=== PATIENT | female | born 1980 | race Caucasian/White ===

== ENCOUNTER → 2023-06-21 | Outpatient (CLI) | payer MEDICAID ==
[2023-06-21 12:38] LABS: BASO # 0.1 10*3/uL (0.0-0.1); BASO % 0.8 % (0.0-1.0); BILIRUBIN Negative (Negative); BLOOD Negative (Negative); CLARITY Clear (Clear); COLOR Yellow (Yellow); EOS # 0.7 10*3/uL (0.0-0.4); EOS % 7.2 % (1.0-4.0); GLUCOSE 3+ (Negative); HEMATOCRIT 44.3 % (37.0-47.0); KETONE Negative (Negative); LEUKO ESTERASE Negative (Negative); LYMPH # 2.4 10*3/uL (1.3-4.4); LYMPH % 24.6 % (27.0-41.0); MEAN CELL VOLUME 92.5 fl (81.0-99.0); MEAN CORPUSCULAR HGB 32.4 pg (27.0-31.0); MEAN PLATELET VOLUME 9.4 fl (9.6-12.3); MONO # 0.8 10*3/uL (0.1-1.0); MONO % 8.5 % (3.0-9.0); NEUT # 5.7 10*3/uL (2.3-7.9); NEUT % 58.6 % (47.0-73.0); NITRITE Negative (Negative); PLATELET COUNT AUTOMATED 264 10*3/uL (130-400); RED BLOOD COUNT 4.79 10*6/uL (4.10-5.10); RED CELL DISTRI WIDTH 12.6 % (0-14.5); RETICULOCYTE % 1.57 % (0.50-2.50); SPECIFIC GRAVITY 1.015 (1.001-1.030); UROBILINOGEN 0.2 E.U./dl (0.0-1.0); WHITE BLOOD COUNT 9.6 10*3/uL (4.8-10.8)
[2023-06-21 13:06] LABS: BACTERIA 2+; YEAST TRACE
[2023-06-21 13:11] LABS: ALKALINE PHOSPHATASE 56 U/L (46-116); BUN 9 mg/dl (9-23); CHLORIDE 107 mmol/L (98-107); CHOLESTEROL 161 mg/dL (<200); GAMMA GLUTAMYL TRANSPEPTIDASE 24 U/L (0-73); LDL CHOLESTEROL 80 mg/dL (9-159); POTASSIUM 3.8 mmol/L (3.4-5.1); SGPT/ALT 28 U/L (10-49); T3 UPTAKE 18.5 % (22.4-36.7); THYROXINE (T4) TOTAL 8.7 ug/dl (4.5-10.9); TOTAL PROTEIN 7.2 gm/dL (6.0-8.0); TRIGLYCERIDES 177 mg/dl (<150); URIC ACID 4.4 mg/dL (3.1-7.8)
[2023-06-21 13:12] LABS: VITAMIN D, 25-HYDROXY 21.2 ng/mL (30-100)
[2023-06-21 13:32] LABS: ATYPICAL LYMPHS 1 % (0-0); BASOPHILS 1 % (0-1); TOTAL CELLS COUNTED 100 #CELLS
[2023-06-21 13:33] LABS: OVALOCYTES FEW; PLATELET SUFFICIENCY NORMAL (NORMAL); POLYCHROMASIA SLIGHT
[2023-06-22 03:06] LABS: TOTAL PROTEIN, SERUM 6.9 g/dL (6.0-8.5)
[2023-06-22 13:07] LABS: A/G RATIO 1.3 (0.7-1.7); ALBUMIN 3.9 g/dL (2.9-4.4); ALPHA-1-GLOBULIN 0.2 g/dL (0.0-0.4); ALPHA-2-GLOBULIN 0.9 g/dL (0.4-1.0); ANTI-DSDNA ANTIBODIES <1 IU/mL (0-9); BETA GLOBULIN 1.1 g/dL (0.7-1.3); GAMMA GLOBULIN 0.9 g/dL (0.4-1.8); M-SPIKE Not Observed g/dL (Not Observed)
== END | disposition home or self-care (01) ==
LOC: LAB 12:11
PROVIDERS: ATTEND Family Medicine
DX: M47.812 Spondylosis without myelopathy or radiculopathy, cervical region (principal); M50.322 Other cervical disc degeneration at C5-C6 level; M50.321 Other cervical disc degeneration at C4-C5 level; E78.5 Hyperlipidemia, unspecified; E55.9 Vitamin D deficiency, unspecified; R79.89 Other specified abnormal findings of blood chemistry; R53.83 Other fatigue; R74.8 Abnormal levels of other serum enzymes; Z95.810 Presence of automatic (implantable) cardiac defibrillator

== ENCOUNTER → 2023-07-13 | Outpatient (CLI) | payer MEDICAID | END | disposition home or self-care (01) | LOC: US 02:07 | PROVIDERS: ATTEND Family Medicine | DX: E04.1 Nontoxic single thyroid nodule (principal) ==

== ENCOUNTER → 2023-08-17 | Outpatient (CLI) | payer MEDICAID ==
[2023-08-17 16:15] LABS: BASO # 0.1 10*3/uL (0.0-0.1); BASO % 0.9 % (0.0-1.0); EOS # 0.7 10*3/uL (0.0-0.4); HEMATOCRIT 46.8 % (37.0-47.0); LYMPH # 2.1 10*3/uL (1.3-4.4); LYMPH % 22.1 % (27.0-41.0); MEAN CELL VOLUME 93.6 fl (81.0-99.0); MEAN CORPUSCULAR HGB 32.2 pg (27.0-31.0); MEAN CORPUSCULAR HGB CONC 34.4 g/dl (33.0-37.0); MEAN PLATELET VOLUME 9.3 fl (9.6-12.3); MONO # 0.8 10*3/uL (0.1-1.0); MONO % 8.2 % (3.0-9.0); NEUT # 5.9 10*3/uL (2.3-7.9); NEUT % 61.6 % (47.0-73.0); PLATELET COUNT AUTOMATED 256 10*3/uL (130-400); RETICULOCYTE % 1.65 % (0.50-2.50); WHITE BLOOD COUNT 9.6 10*3/uL (4.8-10.8)
[2023-08-17 16:16] LABS: BILIRUBIN Negative (Negative); BLOOD 3+ (Negative); CLARITY Cloudy (Clear); COLOR Red (Yellow); GLUCOSE 3+ (Negative); KETONE Negative (Negative); LEUKO ESTERASE Trace (Negative); NITRITE Negative (Negative); SPECIFIC GRAVITY 1.015 (1.001-1.030); UROBILINOGEN 0.2 E.U./dl (0.0-1.0)
[2023-08-17 16:38] LABS: RBC TNTC rbc/hpf (0-2)
[2023-08-17 16:42] LABS: ALKALINE PHOSPHATASE 64 U/L (46-116); BUN 10 mg/dl (9-23); CHLORIDE 105 mmol/L (98-107); CHOLESTEROL 201 mg/dL (<200); GAMMA GLUTAMYL TRANSPEPTIDASE 24 U/L (0-73); LDL CHOLESTEROL 80 mg/dL (9-159); POTASSIUM 3.7 mmol/L (3.4-5.1); SGPT/ALT 37 U/L (5-49); T3 UPTAKE 21.9 % (22.4-36.7); THYROXINE (T4) TOTAL 10.4 ug/dl (4.5-10.9); TOTAL PROTEIN 7.6 gm/dL (6.0-8.0); TRIGLYCERIDES 393 mg/dl (<150)
[2023-08-17 16:45] LABS: VITAMIN D, 25-HYDROXY 31.7 ng/mL (30-100)
[2023-08-17 16:55] LABS: B-hCG (QUALITATIVE) NEGATIVE (NEGATIVE); BETA-HCG, QUANT < 3.0 mIU/mL (3-10)
[2023-08-18 08:09] LABS: DHEA SULFATE 49.9 ug/dL (41.2-243.7)
[2023-08-18 12:07] LABS: SEX HORMONE BINDING GLOBULIN 51.3 nmol/L (24.6-122.0)
[2023-08-23 00:06] LABS: TESTOSTERONE FREE, (DIRECT) 0.8 pg/mL (0.0-4.2)
== END | disposition home or self-care (01) ==
LOC: LAB 15:43
PROVIDERS: ATTEND Family Medicine
DX: E78.5 Hyperlipidemia, unspecified (principal); E55.9 Vitamin D deficiency, unspecified; R79.89 Other specified abnormal findings of blood chemistry; R53.83 Other fatigue; R74.8 Abnormal levels of other serum enzymes

== ENCOUNTER → 2023-09-06 | Outpatient (CLI) | payer MEDICAID ==
[2023-09-06 12:11] LABS: ALKALINE PHOSPHATASE 60 U/L (46-116); BUN 9 mg/dl (9-23); CHLORIDE 102 mmol/L (98-107); POTASSIUM 4.1 mmol/L (3.4-5.1); SGPT/ALT 21 U/L (5-49); TOTAL PROTEIN 7.4 gm/dL (6.0-8.0)
== END | disposition home or self-care (01) ==
LOC: LAB 11:20
PROVIDERS: ATTEND Family Medicine
DX: R79.89 Other specified abnormal findings of blood chemistry (principal); R53.83 Other fatigue

== ENCOUNTER → 2023-09-13 | Outpatient (CLI) | payer MEDICAID | END | disposition home or self-care (01) | LOC: US 02:39 | PROVIDERS: ATTEND Family Medicine | DX: K76.0 Fatty (change of) liver, not elsewhere classified (principal); K80.20 Calculus of gallbladder without cholecystitis without obstruction ==

== ENCOUNTER → 2023-11-28 | Outpatient (CLI) | payer MEDICAID ==
[2023-11-28 11:57] LABS: POTASSIUM 3.7 mmol/L (3.4-5.1); T3 UPTAKE 24.8 % (22.4-36.7); THYROXINE (T4) TOTAL 9.8 ug/dl (4.5-10.9); TOTAL PROTEIN 7.7 gm/dL (6.0-8.0)
== END | disposition home or self-care (01) ==
LOC: LAB 10:03
PROVIDERS: ATTEND Family Medicine
DX: E78.5 Hyperlipidemia, unspecified (principal); E55.9 Vitamin D deficiency, unspecified; R79.89 Other specified abnormal findings of blood chemistry; R53.83 Other fatigue; R74.8 Abnormal levels of other serum enzymes

== ENCOUNTER 2023-12-27 14:24 | Emergency (ER) | payer MEDICAID ==
[~2023-12-27] VITALS: Ht 167.6 cm; Wt 112.0 kg
[2023-12-27] MEDS ORDERED: SODIUM CHLORIDE 0.9% 1,000 ML IV ONE ×2 (15:15→16:00)
[2023-12-27 15:30] LABS: BASO # 0.1 10*3/uL (0.0-0.1); EOS # 0.5 10*3/uL (0.0-0.4); EOS % 5.1 % (1.0-4.0); HEMATOCRIT 42.4 % (37.0-47.0); LYMPH # 3.1 10*3/uL (1.3-4.4); LYMPH % 33.8 % (27.0-41.0); MEAN CELL VOLUME 95.3 fl (81.0-99.0); MEAN CORPUSCULAR HGB 31.9 pg (27.0-31.0); MEAN CORPUSCULAR HGB CONC 33.5 g/dl (33.0-37.0); MEAN PLATELET VOLUME 9.7 fl (9.6-12.3); MONO # 0.9 10*3/uL (0.1-1.0); MONO % 9.4 % (3.0-9.0); NEUT # 4.7 10*3/uL (2.3-7.9); NEUT % 50.6 % (47.0-73.0); PLATELET COUNT AUTOMATED 186 10*3/uL (130-400); RED BLOOD COUNT 4.45 10*6/uL (4.10-5.10); RED CELL DISTRI WIDTH 13.2 % (0-14.5); WHITE BLOOD COUNT 9.2 10*3/uL (4.8-10.8)
[2023-12-27 15:49] LABS: BUN 7 mg/dl (9-23); CHLORIDE 107 mmol/L (98-107); POTASSIUM 3.6 mmol/L (3.4-5.1)
[2023-12-27 17:08] LABS: BILIRUBIN 1+ (Negative); BLOOD 3+ (Negative); CLARITY Cloudy (Clear); COLOR Dark Yellow (Yellow); GLUCOSE 3+ (Negative); KETONE Negative (Negative); NITRITE Negative (Negative)
[2023-12-27 17:09] LABS: LEUKO ESTERASE Trace (Negative); UROBILINOGEN 0.2 E.U./dl (0.0-1.0)
[2023-12-27 17:11] LABS: BACTERIA 2+; RBC TNTC rbc/hpf (0-2)
[2023-12-27] MEDS ORDERED: CEPHALEXIN500 M1 PO (17:16)
== END 2023-12-27 18:13 | disposition home or self-care (01) ==
LOC: ED 14:24
PROVIDERS: Physician Assistant Medical
DX: N39.0 Urinary tract infection, site not specified (principal); I95.9 Hypotension, unspecified; T50.995A Adverse effect of other drugs, medicaments and biological substances, initial encounter; I50.9 Heart failure, unspecified; E78.5 Hyperlipidemia, unspecified; Y92.009 Unspecified place in unspecified non-institutional (private) residence as the place of occurrence of the external cause

== ENCOUNTER → 2024-04-10 | Outpatient (CLI) | payer MEDICAID ==
[~2024-04-10] MED LIST: CEPHALEXIN500 M1 PO
[2024-04-10 15:37] LABS: BASO # 0.1 10*3/uL (0.0-0.1); BASO % 1.2 % (0.0-1.0); BILIRUBIN Negative (Negative); BLOOD Negative (Negative); CLARITY Clear (Clear); COLOR Yellow (Yellow); EOS # 0.5 10*3/uL (0.0-0.4); EOS % 5.7 % (1.0-4.0); GLUCOSE 3+ (Negative); HEMATOCRIT 44.7 % (37.0-47.0); KETONE Negative (Negative); LEUKO ESTERASE Negative (Negative); LYMPH # 1.9 10*3/uL (1.3-4.4); LYMPH % 22.9 % (27.0-41.0); MEAN CELL VOLUME 92.9 fl (81.0-99.0); MEAN CORPUSCULAR HGB 30.6 pg (27.0-31.0); MEAN CORPUSCULAR HGB CONC 32.9 g/dl (33.0-37.0); MEAN PLATELET VOLUME 9.9 fl (9.6-12.3); MONO # 0.7 10*3/uL (0.1-1.0); MONO % 8.7 % (3.0-9.0); NEUT # 5.1 10*3/uL (2.3-7.9); NEUT % 61.1 % (47.0-73.0); NITRITE Negative (Negative); PH 5.5 (4.5-8.0); PLATELET COUNT AUTOMATED 266 10*3/uL (130-400); RED BLOOD COUNT 4.81 10*6/uL (4.10-5.10); RED CELL DISTRI WIDTH 12.5 % (0-14.5); RETICULOCYTE % 1.21 % (0.50-2.50); SPECIFIC GRAVITY >= 1.030 (1.001-1.030); UROBILINOGEN 0.2 E.U./dl (0.0-1.0); WHITE BLOOD COUNT 8.3 10*3/uL (4.8-10.8)
[2024-04-10 15:53] LABS: ALKALINE PHOSPHATASE 64 U/L (46-116); BUN 10 mg/dl (9-23); CHLORIDE 107 mmol/L (98-107); CHOLESTEROL 174 mg/dL (<200); GAMMA GLUTAMYL TRANSPEPTIDASE 24 U/L (0-73); LDL CHOLESTEROL 90 mg/dL (9-159); POTASSIUM 3.6 mmol/L (3.4-5.1); SGPT/ALT 33 U/L (5-49); T3 UPTAKE 28.8 % (22.4-36.7); THYROXINE (T4) TOTAL 15.1 ug/dl (4.5-10.9); TOTAL PROTEIN 7.1 gm/dL (6.0-8.0); TRIGLYCERIDES 157 mg/dl (<150)
[2024-04-10 16:14] LABS: BACTERIA 1+
== END | disposition home or self-care (01) ==
LOC: LAB 15:00
PROVIDERS: ATTEND Family Medicine
DX: R79.89 Other specified abnormal findings of blood chemistry (principal); R53.83 Other fatigue; R10.9 Unspecified abdominal pain

== ENCOUNTER 2024-06-29 06:31 | Emergency (ER) | payer SELFPAY ==
[~2024-06-29] VITALS: Ht 167.6 cm; Wt 114.8 kg
[2024-06-29] MEDS ORDERED: MORPHINE Sulfate 2 MG/ML SYR IV PRN (07:20)
[2024-06-29] MEDS ORDERED: Ondansetron Hydrochloride 4 MG/2 ML VIAL IV ONE (07:20)
[2024-06-29 07:54] LABS: BASO # 0.1 10*3/uL (0.0-0.1); BASO % 0.9 % (0.0-1.0); EOS # 0.5 10*3/uL (0.0-0.4); HEMATOCRIT 43.6 % (37.0-47.0); LYMPH # 2.1 10*3/uL (1.3-4.4); LYMPH % 17.6 % (27.0-41.0); MEAN CORPUSCULAR HGB 30.3 pg (27.0-31.0); MEAN CORPUSCULAR HGB CONC 32.6 g/dl (33.0-37.0); MEAN PLATELET VOLUME 9.5 fl (9.6-12.3); MONO % 8.6 % (3.0-9.0); NEUT # 8.3 10*3/uL (2.3-7.9); NEUT % 68.5 % (47.0-73.0); PLATELET COUNT AUTOMATED 248 10*3/uL (130-400); RED BLOOD COUNT 4.69 10*6/uL (4.10-5.10); RED CELL DISTRI WIDTH 13.3 % (0-14.5); WHITE BLOOD COUNT 12.1 10*3/uL (4.8-10.8)
[2024-06-29 08:13] LABS: POTASSIUM 3.6 mmol/L (3.4-5.1)
== END 2024-06-29 09:49 | disposition home or self-care (01) ==
LOC: ED 06:31
PROVIDERS: Emergency Medicine
DX: R07.89 Other chest pain (principal); R00.2 Palpitations; R06.02 Shortness of breath; R42 Dizziness and giddiness; I50.9 Heart failure, unspecified; Z87.891 Personal history of nicotine dependence

== ENCOUNTER 2024-07-06 12:37 | Emergency (ER) | payer SELFPAY ==
[~2024-07-06] VITALS: Ht 167.6 cm; Wt 114.8 kg
[2024-07-06 13:40] LABS: BASO # 0.1 10*3/uL (0.0-0.1); BASO % 0.7 % (0.0-1.0); EOS # 0.4 10*3/uL (0.0-0.4); EOS % 3.3 % (1.0-4.0); HEMATOCRIT 40.6 % (37.0-47.0); LYMPH # 2.5 10*3/uL (1.3-4.4); LYMPH % 20.8 % (27.0-41.0); MEAN CELL VOLUME 91.4 fl (81.0-99.0); MEAN CORPUSCULAR HGB 30.2 pg (27.0-31.0); MEAN PLATELET VOLUME 9.3 fl (9.6-12.3); MONO # 1.1 10*3/uL (0.1-1.0); NEUT # 7.9 10*3/uL (2.3-7.9); NEUT % 65.9 % (47.0-73.0); PLATELET COUNT AUTOMATED 244 10*3/uL (130-400); RED BLOOD COUNT 4.44 10*6/uL (4.10-5.10); RED CELL DISTRI WIDTH 13.3 % (0-14.5)
[2024-07-06 13:50] LABS: ACT PARTIAL THROMBO TIME 24.7 SECONDS (20.0-32.1)
[2024-07-06 14:22] LABS: POTASSIUM 3.5 mmol/L (3.4-5.1); TOTAL PROTEIN 6.9 gm/dL (6.0-8.0)
[2024-07-06 14:43] LABS: FREE T4 1.28 ng/dl (0.89-1.76)
[2024-07-06] MEDS ORDERED: SODIUM CHLORIDE 0.9% 100 ML BAG IV ONE (15:00)
[2024-07-06] MEDS ORDERED: IOHEXOL 350 MG/ML 100 ML VIAL IV ONE (15:00)
[2024-07-06 15:55] LABS: BILIRUBIN Negative (Negative); BLOOD Negative (Negative); CLARITY Clear (Clear); COLOR Yellow (Yellow); GLUCOSE 3+ (Negative); KETONE Trace (Negative); LEUKO ESTERASE Negative (Negative); NITRITE Negative (Negative); PH 5.5 (4.5-8.0); SPECIFIC GRAVITY >= 1.030 (1.001-1.030); UROBILINOGEN 0.2 E.U./dl (0.0-1.0)
[2024-07-06 16:01] LABS: BACTERIA 1+; EPITHELIAL CELLS 51-100
== END 2024-07-06 19:52 | disposition home or self-care (01) ==
LOC: ED 12:37
PROVIDERS: Internal Medicine
DX: R00.2 Palpitations (principal); R06.02 Shortness of breath; M79.89 Other specified soft tissue disorders; E03.9 Hypothyroidism, unspecified; I50.9 Heart failure, unspecified

== ENCOUNTER 2024-10-18 16:02 | Emergency (ER) | payer MEDICAID ==
[~2024-10-18] VITALS: Ht 167.6 cm; Wt 117.9 kg
[2024-10-18] MEDS ORDERED: Acetaminophen/Oxycodone 5 MG/325 MG TABLET PO ONE (16:30)
[2024-10-18] MEDS ORDERED: LEVOTHYROXINE100 MC1 PO (16:31)
[2024-10-18] MEDS ORDERED: ATORVASTATIN CA40 M1 PO (16:31)
[2024-10-18] MEDS ORDERED: GEMFIBROZIL600 MG PO (16:31)
[2024-10-18] MEDS ORDERED: ALDACTONE25 MG PO (16:31)
[2024-10-18] MEDS ORDERED: FARXIGA10 M1 PO (16:32)
[2024-10-18] MEDS ORDERED: METOPROLOL SUCC25 M2 PO (16:32)
[2024-10-18] MEDS ORDERED: AMIODARONE HYD200 MG PO (16:32)
[2024-10-18] MEDS ORDERED: ENTRESTO 24 MG1 EACH PO (16:32)
[2024-10-18] MEDS ORDERED: FUROSEMIDE20 M1 PO (16:32)
[2024-10-18] MEDS ORDERED: MELOXICAM15 MG PO (17:42)
[2024-10-18] MEDS ORDERED: CYCLOBENZAPRINE10 MG PO (17:42)
== END 2024-10-18 18:02 | disposition home or self-care (01) ==
LOC: ED 16:02
DX: M54.50 Low back pain, unspecified (principal); M54.2 Cervicalgia; I50.9 Heart failure, unspecified; W19.XXXA Unspecified fall, initial encounter

== ENCOUNTER 2025-02-24 21:06 | Emergency (ER) | payer MEDICAID ==
[~2025-02-24] VITALS: Ht 167.6 cm; Wt 118.4 kg
[~2025-02-24 21:06] MED LIST changes: +ALDACTONE25 MG PO; +AMIODARONE HYD200 MG PO; +ATORVASTATIN CA40 M1 PO; +CYCLOBENZAPRINE10 MG PO; +ENTRESTO 24 MG1 EACH PO; +FARXIGA10 M1 PO; +FUROSEMIDE20 M1 PO; +GEMFIBROZIL600 MG PO; +LEVOTHYROXINE100 MC1 PO; +MELOXICAM15 MG PO; +METOPROLOL SUCC25 M2 PO
[2025-02-24] MEDS ORDERED: Acetaminophen/Hydrocodone 5 MG/325 MG TABLET PO ONE (22:15)
[2025-02-24] MEDS ORDERED: CEPHALEXIN 500 MG CAP PO ONE (23:15)
[2025-02-24] MEDS ORDERED: CEPHALEXIN500 M1 PO (23:16)
== END 2025-02-24 23:27 | disposition home or self-care (01) ==
LOC: ED 21:06
DX: S91.331A Puncture wound without foreign body, right foot, initial encounter (principal); I50.9 Heart failure, unspecified; Z79.899 Other long term (current) drug therapy; W22.8XXA Striking against or struck by other objects, initial encounter; Y93.89 Activity, other specified; Y92.89 Other specified places as the place of occurrence of the external cause; Y99.8 Other external cause status